=== PATIENT | male | born 1970 | race Caucasian/White ===

== ENCOUNTER → 2020-06-02 09:31 | Outpatient (BNVA) | payer OTHER, SELFPAY | PROVIDERS: Family Provider Nurse Practitioner; PCP Nurse Practitioner Family; Visit Provider Nurse Practitioner Family | DX: E78.5 Hyperlipidemia, unspecified (principal) | CPT/HCPCS: 80053; 80061; 85025 ==

== ENCOUNTER → 2021-03-02 08:37 | Outpatient (BNVA) | payer OTHER, SELFPAY | PROVIDERS: Family Provider Nurse Practitioner; PCP Nurse Practitioner Family; Visit Provider Nurse Practitioner Family | DX: E78.5 Hyperlipidemia, unspecified (principal) | CPT/HCPCS: 80053; 80061; 83721; 85025 ==

== ENCOUNTER → 2021-06-14 10:08 | Outpatient (BNVA) | payer OTHER, SELFPAY | PROVIDERS: Family Provider Nurse Practitioner; PCP Nurse Practitioner Family; Visit Provider Nurse Practitioner Family | DX: E78.5 Hyperlipidemia, unspecified (principal) | CPT/HCPCS: 80053; 80061; 85025 ==

== ENCOUNTER → 2022-03-20 10:53 | Outpatient (BNVA) | payer OTHER, SELFPAY | PROVIDERS: Family Provider Nurse Practitioner; PCP Nurse Practitioner Family; Visit Provider Nurse Practitioner Family | DX: E78.5 Hyperlipidemia, unspecified (principal); Z12.5 Encounter for screening for malignant neoplasm of prostate; Z53.20 Procedure and treatment not carried out because of patient's decision for unspecified reasons | CPT/HCPCS: 80053; 80061; 83721; 84443; 85025; G0103 ==

== ENCOUNTER → 2022-09-14 08:58 | Outpatient (BNVA) | payer OTHER, SELFPAY | PROVIDERS: Family Provider Nurse Practitioner; PCP Nurse Practitioner Family; Visit Provider Nurse Practitioner Family | DX: E78.5 Hyperlipidemia, unspecified (principal); Z12.5 Encounter for screening for malignant neoplasm of prostate | CPT/HCPCS: 80053; 80061; 84443; 85025; G0103 ==

== ENCOUNTER 2022-10-03 11:23 | Emergency (ER) | payer OTHER, SELFPAY ==
[2022-10-03 11:37] VITALS: BP 151/87; PULSE 76; RESP 16; TEMP 36.8; O2SAT 98; BMI 34.3
--- NOTE | 2022-10-03 11:46 | W.ED.EXTPRO ---
HPI - Extremity Problem General: Chief complaint: Extremity Injury, Lower Stated complaint: Right Ankle and foot injury Time Seen by Provider: 10/03/22 11:24 History of Present Illness: Mr Bergman is a 51-year-old gentleman presented the emergency department for evaluation of right lower extremity injury. He reports being at his baseline health. He was cutting down a tree when it kicked back and knocked him down and rolled over his lower right leg. He immediately had pain. Inability to ambulate. Currently endorses mild to moderate pain. Denies any other injury, no head strike or loss of consciousness. Denies sensory or motor changes. No other specific changes in health, exacerbating, or alleviating factors identified. Tree was approximately 16 inches in diameter. Tdap thought to be greater than 10 years ago. Onset (ago): minute(s) Pain Consistency: constant Location: right and lower extremity Quality: aching Exacerbating factors: weight bearing, walking and palpation Associated symptoms: Reports no associated symptoms Review of Systems General: Reports: 10 or more systems reviewed and unremarkable except in HPI and below PFSH ED PFSH: Surgical History No pertinent past surgical history Family History Father Hypertension Diabetes Social History Smoking and tobacco status: current every day smoker cigarettes Packs smoked per day: 0.25 Alcohol intake: never Desire information about alcohol rehabilitation?: No Counseling given: No Substance/Drug Use: never Desire information about substance/drug rehabilitation?: No Counseling given: No Adopted: No Caregiver/support person: No Lives independently: Yes Household members: spouse Housing: House Marital status: Number of children: 2 Number of grandchildren: 1 Highest education level completed: High School Graduate service: No Current occupational status: employed Physical Exam Const: COMMON NORMALS: alert GENERAL APPEARANCE: cooperative and well developed HENMT: COMMON NORMALS: normocephalic and atraumatic HEAD & SCALP: normocephalic and atraumatic Eye: COMMON NORMALS: conjunctivae normal CONJUNCTIVA: Yes conjunctivae normal SCLERA: sclerae normal Neck/C-Spine: COMMON NORMALS: supple GENERAL: Yes trachea midline Resp: COMMON NORMALS: clear to auscultation bilaterally EFFORT & INSPECTION: Yes able to speak in complete sentences AUSCULTATION: clear to auscultation bilaterally Cardio: COMMON NORMALS: regular rate and regular rhythm RATE: regular rate RHYTHM: regular rhythm Extremity: NARRATIVE EXTREMITY EXAM: Right lower extremity with edema and developing ecchymosis to the right ankle and proximal foot. Abrasions present without active bleeding. No repairable laceration identified. CMS intact. No proximal tenderness or abnormalities identified. GENERAL: Yes normal exam except as noted and No edema Neuro: COMMON NORMALS: moves all extremities SENSORIUM/ORIENTATION: Yes alert and No Orientation impaired Psych: COMMON NORMALS: mental status grossly normal and Normal thought process present THOUGHT PROCESS: Normal thought process present Course Vital Signs: Vital signs: Vital Signs Temperature 98.2 F 10/03/22 11:37 Pulse Rate 76 10/03/22 11:37 Respiratory Rate 16 10/03/22 11:37 Blood Pressure 151/87 10/03/22 11:37 Pulse Oximetry 98 10/03/22 11:37 Oxygen Delivery Me thod Room Air 10/03/22 11:37 MDM - Extremity (Nontraumatic) Medical Decision Making 51-year-old gentleman presenting with isolated right lower extremity injury from blunt trauma. Exam as above. Nontoxic. X-ray of the foot and ankle obtained with nondisplaced lower fibular fracture and soft tissue edema. Patient improved with analgesia. Abrasion cleaned and bacitracin placed prior to splinting. Tdap updated Plan for outpatient orthopedic follow-up. The results of ED evaluation were discussed with the patient including prescriptions and/or symptomatic cares (if applicable) including appropriate and responsible use, followup plan, and return precautions. The patient verbalized understanding and felt safe for discharge. Medical Records I reviewed the patient's medical records. Lab Data I reviewed the patient's lab results. Radiology Impressions Ankle X-Ray 10/03/22 11:50 IMPRESSION: 1. Nondisplaced lower fibular fracture and soft tissue swelling Foot X-Ray 10/03/22 11:50 IMPRESSION: 1. No acute fracture of the right foot. 2. Soft tissue swelling and possible fracture involving the distal fibula. Discharge Plan Discharge Patient Disposition: Home Clinical Impression: Crush injury lower leg, Abrasion of anterior right lower leg Fracture of distal end of right fibula Qualifiers: Encounter type: initial encounter Fracture type: closed Fracture morphology: other fracture Qualified Code(s): S82.831A - Other fracture of upper and lower end of right fibula, initial encounter for closed fracture Condition: Stable Prescriptions: New ondansetron 4 mg tablet,disintegrating 4 mg PO Q8H PRN (Reason: nausea and vomiting) Qty: 15 0RF No Action celecoxib [Celebrex] 200 mg capsule 200 mg PO BID 30 Days Qty: 60 0RF Rx Instructions: TAKE 1 TABLET TWICE DAILY (DME) Cam Walker. See Rx Instructions .ROUTE .MEDSUPPLY Qty: 1 0RF Rx Instructions: As directed atorvastatin 40 mg tablet 20 mg PO DAILY oxycodone 5 mg tablet 5 mg PO Q4H PRN (Reason: pain) 7 Days Qty: 30 0RF Discharge Orders: Discharge ED (Routine); Ordered 10/03/22 Ordered By: Richi Watson Referrals: Caroline Pace FNP-C [Primary Care Provider] - Discharge Diet: Usual diet Discharge Activity: Limit activity as instructed Patient Instructions: Ankle Fracture (ED), Crutch Instructions (ED), Splint Care (ED), Crush Injury (ED), Opioid Safety Activity Restrictions/Additional Instructions: Thank you for visiting the emergency department. You were seen and evaluated for ankle injury. You were found to have a broken bone in the ankle. This requires orthopedic follow-up and I will message case management for follow-up. You may use lskz-oox-cuhexsk medications such as acetaminophen and ibuprofen for pain however please do not exceed the daily recommended dosage as listed on the packaging and please keep in mind that many namebrand medications contain the same active ingredients. Please avoid these medications if previously instructed to do so by another physician due to other underlying medical condition. Elevation will also help. I will prescribe oxycodone as well for pain control. Use this cautiously as it is an opioid. Do not combine it with other sedating substances. Please keep splint on and do not bear weight on extremity. Return for uncontrolled pain, any changes in sensation or color or ability to move extremity, or anything else that you are concerned about and feel needs emergency department evaluation. Coding Level of Care Code ED Physical Therapy Supervisor for Edward Palomo
--- NOTE | 2022-10-03 11:50 | XR_ITS ---
WS: [id number] Exam: XR ankle RT min 3V* [id number] Date/Time of Exam: 10/03/2022 11:54 AM Reason For Exam: tree rolled over leg There is a comminuted nondisplaced fracture of the lower metaphysis of the fibula. Associated soft ti ssue swelling. The remainder of the right ankle appears normal. XR/XR ankle RT min 3V* [id number] IMPRESSION: 1. Nondisplaced lower fibular fracture and soft tissue swelling
--- NOTE | 2022-10-03 11:50 | XR_ITS ---
WS: [id number] Exam: XR foot RT min 3V* [id number] Date/Time of Exam: 10/03/2022 11:54 AM Reason For Exam: tree rolled over leg No acute fracture or dislocation noted. There is soft tissue swelling along the lower fibula and a po ssible fibular fracture. Plantar heel spur noted. Recommendations: Dedicated images of the right ankle would be suggested for follow-up. XR/XR foot RT min 3V* [id number] IMPRESSION: 1. No acute fracture of the right foot. 2. Soft tissue swelling and possible fracture involving the distal fibula.
[2022-10-03] MEDS: ketorolac 30 mg/mL INJ 15 MG IM (12:04)
[2022-10-03] MEDS: tetanus-dipt-pertussis 0.5 mL SDV IM (12:06)
--- NOTE | 2022-10-04 08:13 | DCPLANNER ---
Addendum entered by Janae Carrasco 10/11/22 06:43: Patient had a follow up appointment scheduled with ortho - patient did attend appointment Addendum entered by Janae Carrasco 10/05/22 13:17: Patient has a follow up appointment scheduled for Saturday, October 08, 2022 at 8:[address] Flores at ortho. Original Note: parking manager had message to schedule a follow up appointment for patient with ortho. parking manager sent patients information to the front office staff at ortho. Patients information will be printed and reviewed. Clinic will call patient with appointment information.
== END 2022-10-03 13:10 | disposition home or self-care (01) ==
PROVIDERS: Emergency Provider Emergency Medicine; PCP Nurse Practitioner Family
DX: S82.831A Other fracture of upper and lower end of right fibula, initial encounter for closed fracture (principal); S80.811A Abrasion, right lower leg, initial encounter; S87.81XA Crushing injury of right lower leg, initial encounter; F17.210 Nicotine dependence, cigarettes, uncomplicated; W20.8XXA Other cause of strike by thrown, projected or falling object, initial encounter; Z23 Encounter for immunization
CPT/HCPCS: 73610; 73630; 90471; 90715; 96372; 99284; J1885

== ENCOUNTER → 2022-10-08 07:54 | Outpatient (BNVA) | payer OTHER, SELFPAY | PROVIDERS: PCP Nurse Practitioner Family; Referring Provider Emergency Medicine; Visit Provider Specialist | DX: S82.831A Other fracture of upper and lower end of right fibula, initial encounter for closed fracture (principal); W20.8XXA Other cause of strike by thrown, projected or falling object, initial encounter | CPT/HCPCS: 73610 ==

== ENCOUNTER 2022-10-08 14:43 | Outpatient (CLI) | payer OTHER, SELFPAY | END 2022-10-08 14:44 | disposition home or self-care (01) | LOC: SPT 14:44 | PROVIDERS: PCP Nurse Practitioner Family; Visit Provider Specialist | DX: Z46.89 Encounter for fitting and adjustment of other specified devices (principal); S82.831D Other fracture of upper and lower end of right fibula, subsequent encounter for closed fracture with routine healing; X58.XXXD Exposure to other specified factors, subsequent encounter | CPT/HCPCS: 97760; L4361 ==

== ENCOUNTER 2022-10-11 05:43 | Day surgery (SDC) | payer OTHER, SELFPAY ==
[2022-10-10 09:41] VITALS: BMI 33.3
[2022-10-11] VITALS (11 sets, daily range): BP systolic 116–154; BP diastolic 66–94; PULSE 71–87; RESP 16–18; TEMP 36.1–36.2; O2SAT 94–98
--- NOTE | 2022-10-11 | XR_ITS ---
WS: [id number] EXAMINATION: XR ankle RT 2V [id number] REASON FOR EXAM: ORIF right ankle COMPARISON: None available. ORDER DATE: 10/11/2022 12:00 AM TECHNIQUE: C-arm images acquired during ORIF of the right fibular fracture X-RAY FINDINGS/IMPRESSION: Imaging demonstrates compression plating of the distal fibular fracture stabilized in anatomic alignm ent. Total fluoroscopy time was 53 seconds
[2022-10-11] MEDS: gabapentin 300 mg Capsule PO (06:17)
[2022-10-11] MEDS: sodium chloride 0.9% 1,000 ML 30 ML IV (06:17)
[2022-10-11] MEDS: acetaminophen 1,000 MG/100 ML PIGGYBACK 400 MG IV (06:17)
[2022-10-11] MEDS: CELEcoxib 200 mg Capsule 400 MG PO (06:17)
--- NOTE | 2022-10-11 06:39 | ANES.PREANE2 ---
Pre-Anesthetic Assessment Height/Weight: Height 1.75 m Weight 102.512 kg Temp Pulse Resp BP Pulse Ox O2 Del Method 97.0 F L 87 18 143/83 97 Room Air 10/11/22 05:56 10/11/22 05:56 10/11/22 05:56 10/11/22 05:56 10/11/22 05:56 10/11/22 06:02 Operation Date: 10/11/22 07:00 Proposed Procedures p OPEN REDUCTION INTERNAL FIXATION OF RIGHT FIBULAR FRACTURE: 67719, S82.831A(Right) - Zoila Flores MD Familial anesthetic complications: None Was Beta Janice taken within 24 hours: N/A Was Clonidine taken within 24 hours: N/A Last intake: Intake Last Liquid Date 10/10/22 Last Liquid Time 22:00 Last Solid Date 10/10/22 Last Solid Time 22:00 Social Tobacco and No alcohol Exam alert, oriented x 3, clear to auscultation bilaterally and regular rate & rhythm Airway Mallampati: Class I Dentition: other (missing teeth, poor dentition) Metabolic Hyperlipidemia Anesthetic Plan ASA status: 2 Anesthesia: General Other: patient declines nerve block Risk of > 500 ml blood loss (7ml/kg in children): No Medications/Allergies Home Medications Medication Instructions Recorded Confirmed Last Taken Type ondansetron 4 mg disintegrating 4 mg PO Q8H PRN nausea and 10/03/22 10/11/22 Unknown Rx tablet vomiting #15 tabs oxycodone 5 mg tablet 5 mg PO Q4H PRN pain #20 tabs 10/03/22 10/11/22 Unknown Rx Cam Walker. #1 ea 10/08/22 10/10/22 10/10/22 Rx celecoxib 200 mg capsule (Celebrex) 200 mg PO BID 30 days #60 caps 10/08/22 10/11/22 10/10/22 19:30 Rx atorvastatin 40 mg tablet 20 mg PO DAILY 10/11/22 10/11/22 10/10/22 06:00 History Allergies Allergy/AdvReac Type Severity Reaction Status Date / Time No Known Allergies Allergy Verified 10/10/22 09:37 Current Medications Generic Name Dose Route Start Last Admin Trade Name Freq PRN Reason Stop Dose Admin Sodium Chloride 1,000 mls @ 30 mls/hr 10/11/22 06:00 10/11/22 06:17 Sodium Chloride 0.9% IV 10/12/22 05:59 30 mls/hr .Q24H ROSEMARIE Administration PFSH Anesthesia Surgical History No pertinent past surgical history Family History Father Hypertension Diabetes Social History Smoking and tobacco status: current every day smoker cigarettes Packs smoked per day: 0.25 Alcohol intake: never Desire information about alcohol rehabilitation?: No Counseling given: No Substance/Drug Use: never Desire information about substance/drug rehabilitation?: No Counseling given: No Adopted: No Caregiver/support person: No Lives independently: Yes Household members: spouse Housing: House Marital status: Number of children: 2 Number of grandchildren: 1 Highest education level completed: High School Graduate service: No Current occupational status: employed Data Anesthesia Cardiac Studies: No Data to Display
--- NOTE | 2022-10-11 06:55 | P.HPUD_ITS ---
Surgery/Procedure H&P Update DATE OF PROCEDURE: October 11, 2022 DATE H&P PERFORMED: 10/08/22 H&P UPDATE INFORMATION: I have reviewed H&P completed within last 30 days, I have examined patient prior to procedure, No changes to prior documentation and H&P is in [facility] E[facility] on date indicated PLANNED PROCEDURE: Operation Date: 10/11/22 07:00 Proposed Procedures p OPEN REDUCTION INTERNAL FIXATION OF RIGHT FIBULAR FRACTURE: 31657, S82.831A(Right) - Zoila Flores MD Related Problem List Diagnoses (1) Fracture of distal end of right fibula: Qualifiers: Encounter type: initial encounter Fracture morphology: other fracture Fracture type: closed Qualified Code(s): S82.831A - Other fracture of upper and lower end of right fibula, initial encounter for closed fracture
[2022-10-11] MEDS: ceFAZolin 2,000 MG in sodium chloride 0.9% (plus) 50 ML 100 MG IV (07:03)
[2022-10-11] MEDS: ceFAZolin 1,000 mg SDV 1000 MG IRRIGATION (07:36)
--- NOTE | 2022-10-11 09:11 | PM.OP ---
Operative Report Date of procedure: October 11, 2022 Pre-op diagnosis: Right distal fibula fracture Post-op diagnosis: Right distal fibula fracture Post-op findings: Minimal displacement right distal fibula fracture Procedure done: Open reduction internal fixation right distal fibula fracture Implants: 3 hole distal fibular plate, Curran Surgeon: Zoila Flores Loans Officer: [facility] operating room technicians Anesthesia: General (Intubated, ASA 2) Estimated blood loss (mL): 10 Tourniquet time (min): 36 (At 250 mmHg) IV fluids (mL): 1,000 Urine output (mL): 0 (No Jean) Complications: None Findings: Minimally angulated right distal fibula fracture Condition: stable Disposition: PACU (Then transferred to same-day surgery for discharge to home) Brief History: This is a 51 year old male patient here today for open reduction internal fixation of his right distal fibular fracture. DOI: 10/03/2022.? Patient states that he was cutting wood and had a tree fall and hit his foot. Patient states that he presented to the [facility] where he was xrays and placed in a splint. Patient states he has been remaining non weight bearing with out complication.? The patient was seen in the office, and discussion was undertaken regarding appropriate treatment for this fracture. We agreed that he would be best served by open reduction internal fixation. Questions were answered, the patient was educated as to the risks and complications, and consents were signed in the office. Procedure: Patient was seen in the preoperative holding area and leg was marked. Patient was brought to the operating theater and placed on the operating room table. After undergoing adequate general intubated anesthesia, ASA 2, the patient's right lower extremity was prepped and draped in usual fashion utilizing DuraPrep. The leg was draped free. Fluoroscopy was used throughout the surgical procedure. We did have a tourniquet high on the right lower extremity. This was elevated to 250 mmHg and total tourniquet time was 36 minutes. Tourniquet elevation followed exsanguination of the leg. A surgical pause was performed. At the time of the surgical pause we identified the site and side of surgery as well as the patient's identity and availability of equipment. We also confirmed appropriate administration of IV antibiotics. Following the above, an incision was made centering over the patient's distal fibula fracture. The incision was continued proximally and distally as necessary to access the fracture. Sizing of the plate was accomplished prior to incision using fluoroscopy. A 3 hole Naveed lateral fibular plate was attached with standard technique. We used a combination of locking screws distally and nonlocking screws proximally screw. Once the plate was appropriately attached, we irrigated the wound. We then closed the wound with 0 Vicryl in the fascial tissues, 2-0 Monocryl in the subcutaneous tissues, and the skin was closed with 4-0 Monocryl. Prior to closure, the wound was injected with ropivacaine, and this was also placed into the ankle joint. Following wound closure, we placed Dermabond and SilvaSorb dressing. Over this was placed in ABD, sterile soft roll, and an Aldair wrap. The patient was placed in a Cam Walker boot and is to remain nonweightbearing. The procedure was well tolerated without complication. Tourniquet time was 36 minutes at 250 mmHg. The patient will be discharged home to follow-up in my office as scheduled. Related Problem List Diagnoses (1) Fracture of distal end of right fibula:
[2022-10-11] MEDS: fentaNYL 50 mcg/mL INJ 2mL 100 MCG IVP (09:34)
--- NOTE | 2022-10-11 09:47 | SUR.PHASEII ---
0940-time out completed at bedside in OPS for block. Dr Lara performed the block assisted by RN. Patient tolerated it well.
--- NOTE | 2022-10-11 09:58 | ANES.PROC ---
Anesthesia Procedures Procedure/Date: 10/11/22 Nerve Block ^: Nerve Block 1: Main Anesthesia: general anesthesia Time Out Performed: Yes Consent: from patient, from other, risks and benefits reviewed and patient agrees to proceed Nerve block location: popliteal (R) Anesthesia monitors applied: pulse oximetry, EKG, BP cuff and oxygen Nerve block position: supine Anesthetic Used: ropivicaine 0.5% (30 ml) and with decadron (4 mg) Ultrasound used to: recognize landmarks Nerve Stimulator Used?: No Interscalene/Femoral BLK: 4 stimuplex 21 g needle used for position and inplane approach, visualize local anesthetic spread and no vascular puncture identified Injection: neg aspiration of heme Patient Tolerated Procedure: well Complications: none Additional Comments: patient requested post op block
== END 2022-10-11 10:17 | disposition home or self-care (01) ==
PROVIDERS: PCP Nurse Practitioner Family; Visit Provider Specialist
PROC: 0QSK04Z Reposition Left Fibula with Internal Fixation Device, Open Approach (ICD-10-PCS; CPT 27828; principal; 2022-10-11 07:00)
DX: W20.8XXA Other cause of strike by thrown, projected or falling object, initial encounter (principal); S82.831A Other fracture of upper and lower end of right fibula, initial encounter for closed fracture; E78.5 Hyperlipidemia, unspecified; F17.210 Nicotine dependence, cigarettes, uncomplicated
CPT/HCPCS: 27792; 73600; 76000; C1713; J0131; J0690; J1100; J1170; J2250; J2405; J2704; J2795; J3010; J3490; J7030

== ENCOUNTER → 2022-10-24 09:12 | Outpatient (BNVA) | payer OTHER, SELFPAY | PROVIDERS: PCP Nurse Practitioner Family; Visit Provider Specialist | DX: S82.831D Other fracture of upper and lower end of right fibula, subsequent encounter for closed fracture with routine healing; X58.XXXD Exposure to other specified factors, subsequent encounter | CPT/HCPCS: 73610 ==

== ENCOUNTER → 2022-11-14 09:49 | Outpatient (BNVA) | payer OTHER, SELFPAY | PROVIDERS: PCP Nurse Practitioner Family; Visit Provider Specialist | DX: S82.831D Other fracture of upper and lower end of right fibula, subsequent encounter for closed fracture with routine healing; X58.XXXD Exposure to other specified factors, subsequent encounter | CPT/HCPCS: 73610 ==

== ENCOUNTER 2022-11-14 15:32 | Outpatient (CLI) | payer OTHER, SELFPAY | END 2022-11-14 15:33 | disposition home or self-care (01) | LOC: SPT 15:32 | PROVIDERS: PCP Nurse Practitioner Family; Visit Provider Specialist | DX: Z46.89 Encounter for fitting and adjustment of other specified devices (principal); S82.831D Other fracture of upper and lower end of right fibula, subsequent encounter for closed fracture with routine healing; X58.XXXD Exposure to other specified factors, subsequent encounter | CPT/HCPCS: 97760; L1902 ==

== ENCOUNTER → 2022-12-05 10:09 | Outpatient (BNVA) | payer OTHER, SELFPAY | PROVIDERS: PCP Nurse Practitioner Family; Visit Provider Specialist | DX: S82.831D Other fracture of upper and lower end of right fibula, subsequent encounter for closed fracture with routine healing; X58.XXXD Exposure to other specified factors, subsequent encounter | CPT/HCPCS: 73610 ==

== ENCOUNTER → 2023-03-15 09:02 | Outpatient (BNVA) | payer OTHER, SELFPAY | PROVIDERS: PCP Nurse Practitioner Family; Visit Provider Nurse Practitioner Family | DX: E78.5 Hyperlipidemia, unspecified (principal) | CPT/HCPCS: 80053; 80061; 83721; 84443; 85025 ==

== ENCOUNTER → 2023-10-02 11:38 | Outpatient (BNVA) | payer OTHER, SELFPAY | PROVIDERS: PCP Nurse Practitioner Family; Visit Provider Nurse Practitioner Family | DX: E78.5 Hyperlipidemia, unspecified (principal) | CPT/HCPCS: 80053; 80061; 83721; 85025 ==

== ENCOUNTER → 2024-04-16 07:56 | Outpatient (BNVA) | payer OTHER, SELFPAY | PROVIDERS: PCP Clinical Nurse Specialist Adult Health; Visit Provider Clinical Nurse Specialist Adult Health | DX: E78.5 Hyperlipidemia, unspecified (principal) | CPT/HCPCS: 80053; 80061; 85025 ==

== ENCOUNTER → 2024-08-04 08:08 | Outpatient (BNVA) | payer OTHER, SELFPAY | PROVIDERS: PCP Clinical Nurse Specialist Adult Health; Visit Provider Clinical Nurse Specialist Adult Health | DX: E78.5 Hyperlipidemia, unspecified (principal); R03.0 Elevated blood-pressure reading, without diagnosis of hypertension | CPT/HCPCS: 80053; 80061; 83721; 85025 ==